=== PATIENT | male | born 2000 | race Two or more races ===

== ENCOUNTER 2024-09-23 14:29 | Emergency (ER) | payer SELFPAY ==
--- NOTE | 2024-09-23 14:56 | PD.EDSKIN ---
ED Skin Abcess FB-RME/HPI General Chief complaint: Skin/Abscess/Foreign Body Stated complaint: INFECTED INSECT BITE ON BICEP X 5 DAYS Time Seen by Provider: 09/23/24 14:38 Arrival date/time: 09/23/24 14:29 23-year-old male presents emergency department complains of infection/insect bite left antecubital region patient presents with ongoing x 5 days patient reports similar episode right arm previously Limitations: no limitations Related Data Previous Rx's ?Medication ?Instructions ?Recorded sulfamethoxazole 800 1 tab PO BID #20 tabs 12/22/23 mg-trimethoprim 160 mg tablet (Bactrim DS) clindamycin HCl 150 mg capsule 450 mg (3 x 150 mg) PO TID 7 days 09/23/24 #63 caps hydrocodone 5 mg-acetaminophen 325 1 tab PO BID PRN pain #6 tabs 09/23/24 mg tablet ibuprofen 800 mg tablet 800 mg PO TID PRN pain #30 tabs 09/23/24 mupirocin 2 % topical ointment 1 applic topical TID 10 days #22 09/23/24 grams Allergies Allergy/AdvReac Type Severity Reaction Status Date / Time No Known Allergies Allergy Verified 09/23/24 14:30 Review of Systems Review of Systems Systems Reviewed: All systems reviewed, normal except as documented Constitutional Constitutional: Reports system reviewed and no additional complaints, except as documented, Denies fever(s) and Denies headache(s) Eyes Eyes: Reports system reviewed and no additional complaints, except as documented and Denies blurry vision ENT Ears, Nose, Mouth, and Throat: Reports system reviewed and no additional complaints, except as documented, Denies headache(s), Denies nasal congestion and Denies nasal discharge Cardiovascular Cardiovascular: Reports system reviewed and no additional complaints, except as documented, Denies chest pain and Denies dyspnea Respiratory Respiratory: Reports system reviewed and no additional complaints, except as documented, Denies chest congestion, Denies cough and Denies dyspnea Gastrointestinal Gastrointestinal: Reports system reviewed and no additional complaints, except as documented and Denies abdominal pain Integumentary/Breasts Skin/Breast: Reports system reviewed and no additional complaints, except as documented and Denies rash Neurologic Neurologic: Reports system reviewed and no additional complaints, except as documented, Reports as per HPI and Denies headache(s) Past Medical History Past Medical History NEUROLOGIC: Negative Neurological Disorders CARDIAC: Negative Cardiac Disorders or Congestive Heart Failure RESPIRATORY: Negative Chronic Obstructive Pulmonary Disease (COPD) or Asthma GASTROINTESTINAL: Negative Gastrointestinal Disorders GENITOURINARY: Negative Renal Disease MUSCULOSKELETAL: Negative Musculoskeletal Disorders ENDOCRINE: Negative Diabetes Mellitus Type 1 or Diabetes Mellitus Type 2 HEMATOLOGIC: Negative Sickle Cell Disease OTHER HISTORY: Negative Hospitalization Social History SMOKING STATUS: Never smoker ED Exam General Limitations: Present no limitations General appearance: Present alert and in no apparent distress Head Head exam: Present atraumatic Eye Eye exam: Present normal appearance, PERRL and EOMI ENT ENT exam: Present normal exam, normal oropharynx and mucous membranes moist Neck Neck exam: Present normal inspection, full ROM and trachea midline Chest Chest inspection: Present normal inspection and symmetric chest wall rise Respiratory Respiratory exam: Present normal lung sounds bilaterally Cardiovascular Cardiovascular exam: Present regular rate, normal rhythm and normal heart sounds Abdominal Exam Abdominal exam: Present soft and normal bowel sounds Extremities Exam Extremities exam: Present normal inspection and full ROM Back Exam Back exam: Present normal inspection and full ROM Neurological Exam Neurological exam: Present alert, oriented X3 and CN II-XII intact Psychiatric Psychiatric exam: Present normal affect and normal mood Skin Skin exam: Present warm, dry, intact and normal color Course Quality Measures none Orders Category Date Time Status Clindamycin Vial [Cleocin vial] Med 09/23/24 14:54 Discontinued 600 mg IM X1 ONE HYDROcodone*/APAP 5/325 [Terrell 5/325] Med 09/23/24 14:54 Discontinued 1 tab PO X1 ONE Ibuprofen Tab [Motrin Tab] Med 09/23/24 14:54 Discontinued 800 mg PO X1 ONE Vital Signs Vital signs: Vital Signs Temperature 98.0 F 09/23/24 15:18 Pulse Rate 94 09/23/24 15:18 Respiratory Rate 18 09/23/24 15:18 Blood Pressure 124/81 09/23/24 15:18 Pulse Oximetry (%) 98 09/23/24 15:18 Oxygen Delivery Method Room Air 09/23/24 15:18 O2 saturation 98% room air within normal limits Skin / Abscess / Foreign Body MDM Narrative MDM Narrative:: 23-year-old male presents emergency department complains of infection/insect bite left antecubital region patient presents with ongoing x 5 days patient reports similar episode right arm previously On exam patient appears to have cellulitis left antecubital area no definite abscess Patient given antibiotics here discharge home with pain medication antibiotics I did explain to the patient if the becomes fluctuant he will need to return for I&D patient states understanding Patient discharged home in no distress to follow-up with primary care doctor in the next 24 to 48 hours and for any worsening symptoms to return to the ER immediately Patient data External records reviewed:: [facility] previous records Clinical information provided by:: patient Social determinants that could affect healthcare access:: none Patient has the following chronic illnesses:: None How is presenting disease/condition affected by chronic disease/condition?: no chronic disease Evaluation data The following diagnostics were reviewed and interpreted by me:: other (specify) (N/A) Lab and/or radiology exams considered but not ordered:: N/A Interpretation Summary: N/A Medications / Prescriptions Medications or Prescriptions considered but not ordered:: Given Medication administrations:: Medication Administration History Discontinued Medications Hydrocodone Bitart/Acetaminophen (Hydrocodone/Apap 5/325 Tablet) 1 tab PO X1 ONE Stop: 09/23/24 14:55 Last Admin: 09/23/24 15:52 Dose: 1 tab Documented By: Clindamycin Phosphate (Clindamycin Phos Inj 150 Mg/Ml Vial 6 Ml) 600 mg IM X1 ONE Stop: 09/23/24 14:55 Last Admin: 09/23/24 15:54 Dose: 600 mg Documented By: Ibuprofen (Ibuprofen Tab 400 Mg Tablet) 800 mg PO X1 ONE Stop: 09/23/24 14:55 Last Admin: 09/23/24 15:53 Dose: 800 mg Documented By: Given Consultations Consultation(s) initiated? (list below): No Diagnosis Skin/Abscess Differential Diagnosis: abscess of skin or subcutaneous tissue and cellulitis Most likely diagnosis given after review of the tests above:: Cellulitis Admission Indicated Admission indicated?: not indicated Admission Request Was there a request for admission?: No Disposition Plan Disposition Plan: Discharge Discharge Attestation Discharge Attestation: The patient and all family members were given an opportunity to ask questions and understood the discharge instructions. Discharge instructions specifically effects, indications for sooner follow up or return to the emergency department, and the expected course of current diagnosis. Patient condition: Stable Discharge Plan Plan Patient Disposition: HOME (Self Care) Disposition Comment: stable Prescriptions/Referrals Prescriptions/Med Rec: New ibuprofen 800 mg tablet 800 mg PO TID PRN (Reason: pain) Qty: 30 0RF hydrocodone-acetaminophen 5-325 mg tablet 1 tab PO BID MDD 10 PRN (Reason: pain) Qty: 6 0RF clindamycin HCl 150 mg capsule 450 mg PO TID 7 Days Qty: 63 0RF mupirocin 2 % ointment 1 applic topical TID 10 Days Qty: 22 0RF No Action sulfamethoxazole-trimethoprim [Bactrim DS] 800-160 mg tablet 1 tab PO BID Qty: 20 0RF Problem List Clinical Impression: Cellulitis of arm, left Patient/Caregiver Discharge Instructions Education Materials: ED Cellulitis Additional Instructions: Please follow up with your primary care doctor in the next 24-48hrs for any worsening symptoms return here immediately Print Language: Frisian Stand Alone Forms: Michelle Award Info., Work/School Release, Patient Portal Info Letter PA/CORPORATE DIRECTOR TALENT ASSESSMENT Supervising Physician PA/CORPORATE DIRECTOR TALENT ASSESSMENT Supervising Physician: dr [email or web address]
[2024-09-23 15:18] VITALS: BP 124/81; PULSE 94; RESP 18; TEMP 36.7; O2SAT 98
[2024-09-23 15:19] VITALS: BMI 33.3
[2024-09-23] MEDS: HYDROcodone/APAP 5/325 TABLET 1 TAB PO (15:52)
[2024-09-23] MEDS: IBUPROFEN TAB 400 MG TABLET 800 MG PO (15:53)
[2024-09-23] MEDS: CLINDAMYCIN PHOS INJ 150 MG/ML VIAL 6 ML 600 MG IM (15:54)
== END 2024-09-23 15:58 | disposition home or self-care (01) ==
PROVIDERS: Emergency Provider Emergency Medicine
DX: L03.114 Cellulitis of left upper limb (principal)
CPT/HCPCS: 96372; 99283; J0736; A9270